=== PATIENT | female | born 1975 | race Caucasian/White ===

== ENCOUNTER 2017-11-08 20:40 | Emergency (ER) | payer MEDICAID ==
[2017-12-03 09:09] VITALS: BMI 22.6
== END 2017-11-08 22:07 | disposition home or self-care (01) ==
LOC: D.ER 20:40
DX: K04.7 Periapical abscess without sinus (principal); K02.9 Dental caries, unspecified; K08.89 Other specified disorders of teeth and supporting structures

== ENCOUNTER 2017-12-03 08:05 | Day surgery (SDC) | payer MEDICAID ==
[~2017-12-03] VITALS: Ht 165.1 cm; Wt 61.7 kg
--- NOTE | ~2017-12-03 | OP ---
PATIENT NAME: CHILANGO IZAGUIRRE MEDICAL RECORD: [id number] LOCATION:[facility] ADMISSION DATE: SURGEON: JORDEN BOO MD DATE OF OPERATION: 12/03/2017 PREOPERATIVE DIAGNOSIS: Comminuted midshaft right fifth metatarsal fracture. POSTOPERATIVE DIAGNOSIS: Comminuted midshaft right fifth metatarsal fracture. PROCEDURES: 1. Open reduction and internal fixation of right fifth metatarsal fracture. 2. Application of allograft synthetic bone graft. SURGEON: Jorden Boo MD ANESTHESIA: General. INTRAOPERATIVE COMPLICATIONS: None. SUMMARY OF PATHOLOGIC FINDINGS: The patient had a multicomminuted fracture that was somewhat old and she had to recover from a tooth abscess before we could do this; however, it was malaligned and continuously painful. For this reason, decision was to carry on with open reduction and internal fixation. IMPLANTS USED: [employer] VariAx 2.0 Z plate essentially down the length of metatarsal with multiple locking and compression screws, mostly locking. There was a bone void distally and this was filled with Vitoss synthetic bone graft from [employer]. OPERATIVE SUMMARY IN DETAIL: After obtaining the appropriate preoperative orthopaedic surgery consent as well as anesthetic consultation, evaluation, and clearance, the patient was brought to the operating room and placed on the operating table in the supine position. After adequate general laryngeal mask airway was administered, a tourniquet was placed about the proximal aspect of the right lower extremity. The right lower extremity was then prepped and draped in a routine sterile fashion. The leg was elevated, exsanguinated, and tourniquet was inflated to 350 mmHg. Fluoroscopy was brought in for incision location. An incision was made essentially from the base of the fifth metatarsal to the metatarsal head. Careful dissection was carried down to the fracture itself. Substantial amount of soft tissue and fibrous growth was removed for mobilization. Fragmentation was recognized. Provisional pinning was then followed by placement of the Z plate, which essentially extended from the base of the fifth to the base of the neck metatarsal. Prior to filling the holes with the bone graft, blood-soaked Vitoss graft was placed into the void and then the rest of the screws were put into place for good fixation. Multiple angle radiographs were taken. Three AP, lateral, and oblique were submitted for final radiologist's review. Wound was then irrigated gently and closed with 2-0 Vicryl followed by 4-0 Prolene in running fashion. Sterile dressings were applied. Tourniquet was deflated. Posterior L&U splint was placed. The patient was awakened and taken to recovery room in stable condition. All final sponge and needle counts were correct. TRANSINT:[id number] Voice Confirmation ID: [id number] DOCUMENT ID: [id number] OPERATIVE REPORT [id number] CHILANGO IZAGUIRRE MD, JORDEN BOWERS at 1438 CC: [id number] DICTATION DATE: 12/03/17 1202 CLERICAL ADVISER: 12/03/17 1355 [facility] [address] [place] [address]
[2017-12-03 08:30] LABS: HEMATOCRIT 39.7 % (36.0-48.0); HEMOGLOBIN 12.4 g/dL (12-16); MCH 25.7 pg (26.0-34.0); MCHC 31.2 g/dL (31.0-37.0); MCV 82.4 fL (80.0-100.0); MEAN PLATELET VOLUME 10.4 fL (7.4-10.4); RBC 4.82 10x6/uL (4.00-5.40); RDW 18.5 % (11.5-14.5); WBC 8.3 10x3/uL (4.8-10.8)
[2017-12-03] MEDS ORDERED: OMEPRAZOLE40 MG (09:07)
[2017-12-03 09:09] VITALS: BP 107/75; Ht 165.1 cm; Wt 61.7 kg
[2017-12-03] MEDS ORDERED: HYDROCODONE-APA1 TAB PO (11:59)
== END 2017-12-03 13:55 | disposition home or self-care (01) ==
LOC: D.OPS 08:05 → D.PAN 14:15
PROVIDERS: Anesthesiology
DX: S92.351A Displaced fracture of fifth metatarsal bone, right foot, initial encounter for closed fracture (principal); Z01.812 Encounter for preprocedural laboratory examination; X58.XXXA Exposure to other specified factors, initial encounter

== ENCOUNTER 2020-10-13 23:35 | Emergency (ER) | payer OTHER ==
[~2020-10-13] VITALS: Ht 165.1 cm; Wt 73.6 kg
[~2020-10-13 23:35] MED LIST: HYDROCODONE-APA1 TAB PO; OMEPRAZOLE40 MG
[2020-10-13 23:36] VITALS: Ht 165.1 cm; Wt 73.6 kg
[2020-10-14 00:12] LABS: HEMATOCRIT 38.2 % (36.0-48.0); HEMOGLOBIN 11.9 g/dL (12-16); LYMPHOCYTES 49.6 % (15-50); MCH 24.9 pg (26.0-34.0); MCHC 31.2 g/dL (31.0-37.0); MCV 79.9 fL (80.0-100.0); MEAN PLATELET VOLUME 9.2 fL (7.4-10.4); NEUTROPHILS 42.9 % (40-80); RBC 4.78 10x6/uL (4.00-5.40); WBC 8.8 10x3/uL (4.8-10.8)
[2020-10-14 00:13] LABS: PLATELET COUNT 305 10x3/uL (130-400)
[2020-10-14 00:25] LABS: ALBUMIN 3.4 g/dL (3.4-5.0); ALKALINE PHOSPHATASE 105 U/L (30-120); ALT (SGPT) 23 U/L (10-68); BILIRUBIN - TOTAL 0.22 mg/dL (0.2-1.3); CALC OSMOLALITY 280 mosm/kg (275-300); CALCIUM 8.9 mg/dL (8.5-10.1); CHLORIDE - SERUM 103 mmol/L (98-107); CREATININE - SERUM 0.6 mg/dL (0.6-1.3); GLUCOSE 112 mg/dL (74-106); PROTEIN - SERUM 7.5 g/dL (6.4-8.2); SODIUM 141 mmol/L (136-145); UREA NITROGEN 11 mg/dL (7-18); eGFR NON AFRICAN AMERICAN > 90 mL/min (90-120)
[2020-10-14 00:32] LABS: POTASSIUM - SERUM 2.5 mmol/L (3.5-5.1)
[2020-10-14 01:50] VITALS: BP 122/62
== END 2020-10-14 01:50 | disposition home or self-care (01) ==
LOC: D.ER 23:35
PROVIDERS: Emergency Medicine
DX: F10.129 Alcohol abuse with intoxication, unspecified (principal); Y90.8 Blood alcohol level of 240 mg/100 ml or more; S09.90XA Unspecified injury of head, initial encounter; W19.XXXA Unspecified fall, initial encounter; Y93.9 Activity, unspecified; Y92.9 Unspecified place or not applicable